=== PATIENT | male | born 1965 ===

== ENCOUNTER 2018-05-23 18:29 | Observation (INO) | payer OTHER ==
[2018-05-23 18:29] VITALS: BMI 30.4
[2018-05-23] MEDS ORDERED: Sodium Chloride 0.9% 1,000 ML IV ONE ×2 (19:22→20:40)
[2018-05-23 19:47] LABS: BASO % 0.3 % (0.0-2.0); HEMOGLOBIN 12.8 g/dL (12.0-18.0); LYMPH # 1.1 K/uL (1.0-4.3); LYMPH % 8.3 % (20.0-40.0); MEAN CELL VOLUME 87.9 fL (80.0-94.0); MEAN CORPUSCULAR HEMOGLOBIN 29.9 pg (27.0-31.0); MEAN PLATELET VOLUME 7.1 fL (7.2-11.7); MONO # 0.6 K/uL (0.0-0.8); MONO % 4.3 % (0.0-10.0); NEUT # 11.7 K/uL (1.8-7.0); NEUT % 87.1 % (50.0-75.0); NRBC % 0.1 % (0.0-2.0); PLATELET COUNT 495 K/uL (130-400); RBC 4.29 Mil/uL (4.40-5.90); RED CELL DISTRIBUTION WIDTH 16.6 % (11.5-14.5); WHITE BLOOD COUNT 13.5 K/uL (4.8-10.8)
[2018-05-23 19:57] LABS: ALB/GLOB RATIO 1.2 (1.0-2.1); ALBUMIN 4.1 g/dL (3.5-5.0); ALT/SGPT 52 U/L (21-72); AST/SGOT 101 U/L (17-59); BLOOD UREA NITROGEN 12 mg/dL (9-20); CALCIUM 8.7 mg/dl (8.6-10.4); GFR NON-AFRICAN AMERICAN > 60; LIPASE 701 U/L (23-300)
--- NOTE | 2018-05-23 20:30 | C.PDOC ---
History Of Present Illness 52 y/o male is brought in by ambulance for public intoxication. Patient was noted to be vomiting coffee grind emesis in the ER. He denies any fever, chills, or other complaints. Time Seen by Provider: 05/23/18 19:10 Chief Complaint (Nursing): Substance Abuse History Per: Patient History/Exam Limitations: no limitations Onset/Duration Of Symptoms: Hrs Current Symptoms Are (Timing): Still Present Past Medical History Reviewed: Historical Data, Nursing Documentation, Vital Signs Vital Signs: Last Vital Signs Temp 98.1 F 05/23/18 19:19 Pulse 127 H 05/23/18 19:19 Resp 22 05/23/18 19:19 BP 140/65 05/23/18 19:19 Pulse Ox 97 05/23/18 19:19 - Medical History PMH: Asthma, Depression, Fibromyalgia, Gastritis (GI Bleed Admitted to 05/02/18), HTN Denies: Alzheimer's Disease, Anemia, Anxiety, Arthritis, Atrial Fibrillation, Bipolar Disorder, Bronchitis, Cardia Arrhythmia, CHF, COPD, Crohn's Disease, Dementia, Diabetes, Diverticulitis, Emphysema, Fractures, Gall Bladder Disease, Hepatitis, HIV, Hypercholesterolemia, Hyperthyroidism, Hypothyroidism, Kidney Stones, Migraine, Mitral Valve Prolapse, Multiple Sclerosis, Osteoporosis, Pancreatitis, Paranoia, Parkinson's Disease, Peripheral Edema, Pneumonia, Post Traumatic Stress Disorder, Pulmonary Embolism, Chronic Kidney Disease, Rheumatoid Arthritis, Schizophrenia, Seizures, Sickle Cell Disease, Sexually Transmitted Disease, Sleep Apnea, TIA Surgical History: Denies: Appendectomy - [facility] (04/05/17) DETOXIFICATION SERVICES FOR SUBSTANCE ABUSE TREATMENT (04/28/18) EXCISION OF DESCENDING COLON, ENDO, DIAGN (04/05/17) INDIV PSYCHOTHERAPY FOR SUBSTANCE ABUSE TREATMENT, SUPPORT (04/28/18) INDIV PSYCHOTHERAPY FOR SUBSTANCE ABUSE, COGNITIV BEHAVIORAL (04/28/18) INDIV PSYCHOTHERAPY FOR SUBSTANCE ABUSE, PSYCHOEDUCATION (04/28/18) INDIVIDUAL PSYCHOTHERAPY, COGNITIVE-BEHAVIORAL (04/28/18) INDIVIDUAL PSYCHOTHERAPY, SUPPORTIVE (04/28/18) RESECTION OF APPENDIX, PERCUTANEOUS ENDOSCOPIC APPROACH (05/12/18) Family History: States: No Known Family Hx - Social History Hx Tobacco Use: Yes (light smoker) Hx Alcohol Use: Yes Hx Substance Use: Yes - Immunization History Hx Tetanus Toxoid Vaccination: Yes Hx Influenza Vaccination: Yes Hx Pneumococcal Vaccination: No Review Of Systems Except As Marked, All Systems Reviewed And Found Negative. Constitutional: Negative for: Fever, Chills Cardiovascular: Negative for: Chest Pain Respiratory: Negative for: Shortness of Breath Gastrointestinal: Positive for: Vomiting. Negative for: Nausea Psych: Positive for: Other (alcohol intoxication) Physical Exam - Physical Exam Appears: Non-toxic, No Acute Distress, Other (Flat affect, bizarre, not answering questions) Skin: Warm, Dry Head: Atraumatic, Normacephalic, No Laceration Eye(s): bilateral: Normal Inspection Oral Mucosa: Moist Neck: Supple Cardiovascular: Rhythm Regular, No Murmur Respiratory: Normal Breath Sounds, No Rales, No Rhonchi, No Wheezing Extremity: Bilateral: Atraumatic, Normal ROM Neurological/Psych: Oriented x3 ED Course And Treatment - Laboratory Results Result Diagrams: 05/23/18 19:38 05/23/18 19:38 Lab Results: Total Bilirubin 0.5 mg/dL (0.2-1.3) 05/23/18 19:38 AST 101 U/L (17-59) H D 05/23/18 19:38 ALT 52 U/L (21-72) 05/23/18 19:38 Alkaline Phosphatase 86 U/L (38-126) 05/23/18 19:38 Total Protein 7.5 g/dL (6.3-8.3) 05/23/18 19:38 Albumin 4.1 g/dL (3.5-5.0) 05/23/18 19:38 Globulin 3.4 gm/dL (2.2-3.9) 05/23/18 19:38 Albumin/Globulin Ratio 1.2 (1.0-2.1) 05/23/18 19:38 Lipase 701 U/L (23-300) H 05/23/18 19:38 Lab Interpretation: Abnormal (lipase 701 H) O2 Sat by Pulse Oximetry: 97 (RA) Pulse Ox Interpretation: Normal - Radiology CXR: Interpreted by Me CXR Interpretation: Yes: No Acute Disease Reevaluation Time: 20:28 Reassessment Condition: Improved - Physician Consult Information Outcome Of Conversation: 2020: d/w Dr. Sandy Lacey, PMD, ok to admit tele obs Medical Decision Making Medical Decision Making: Plan: --EKG --Labs --Chest XR --UA --Ativan 2 mg IVP --Protonix 40 mg IVP --IV fluids 1L probable alcohol w/d, due to pancreatitis pain/discomfort ativan IVF Coffee grind emesis protonix bolus/drip Disposition Doctor Will See Patient In The: Hospital Counseled Patient/Family Regarding: Studies Performed, Diagnosis - Disposition Disposition: HOSPITALIZED Disposition Time: 20:29 Condition: GOOD - Clinical Impression Clinical Impression: Alcohol withdrawal, Pancreatitis, Coffee ground emesis - Scribe Statement The provider has reviewed the documentation as recorded by the Rojelio Jovel Provider Attestation: All medical record entries made by the Rojelio were at my direction and personally dictated by me. I have reviewed the chart and agree that the record accurately reflects my personal performance of the history, physical exam, medical decision making, and the department course for this patient. I have also personally directed, reviewed, and agree with the discharge instructions and disposition.
[2018-05-23 20:41] LABS: URINE BILIRUBIN NEGATIVE (NEGATIVE); URINE BLOOD 1+ (NEGATIVE); URINE CLARITY Hazy (Clear); URINE COLOR Yellow (YELLOW); URINE GLUCOSE (UA) 1+ mg/dL (Normal); URINE LEUKOCYTE ESTERASE NEG Leu/uL (Negative); URINE PROTEIN NEGATIVE (NEGATIVE); URINE UROBILINOGEN NORMAL mg/dL (0.2-1.0)
[2018-05-23 20:44] LABS: LYMPHOCYTE 13 % (20-40); MONOCYTE 2 % (0-10); NEUTROPHIL 85 % (50-75); PLATELET ESTIMATE NORMAL (NORMAL); TOTAL CELLS COUNTED 100
[2018-05-23 21:08] LABS: BARBITURATES, UR NEGATIVE (NEGATIVE); OPIATES, UR NEGATIVE (NEGATIVE); PHENCYCLIDINE, UR NEGATIVE (NEGATIVE)
[2018-05-23 21:10] LABS: BENZODIAZEPINES, UR POSITIVE (NEGATIVE)
[2018-05-23] MEDS: Folic Acid 1 MG, Thiamine 100 MG, Multivitamin (MVI) 10 ML in Dextrose 5% In Water 1,00... IV SCH (23:08)
[2018-05-24 09:38] LABS: AMYLASE 216 U/L (30-110); LIPASE 998 U/L (23-300)
--- NOTE | 2018-05-24 10:54 | US ---
Date of service: 05/24/2018 HISTORY: abdominal pain COMPARISON: Comparison is made to the previous CT of the abdomen and pelvis dated 05/14/2018 TECHNIQUE: Sonographic evaluation of the abdomen. FINDINGS: LIVER: Measures 19.1 cm. Heterogeneous increased echogenicity of the liver parenchyma. No mass. No intrahepatic bile duct dilatation. GALLBLADDER: Unremarkable. No gallstones. COMMON BILE DUCT: Measures 5 mm. No stones. No dilatation. PANCREAS: The pancreas obscured by overlying bowel gas RIGHT KIDNEY: Measures 11.8 x 5.2 x 5.7cm. Normal echogenicity. No calculus, mass, or hydronephrosis. LEFT KIDNEY: Measures 12.5 x 5.8 x 5.7cm. Normal echogenicity. No calculus, mass, or hydronephrosis. SPLEEN: Normal in size and contour. No mass. AORTA: No aneurysmal dilatation. IVC: Unremarkable. OTHER FINDINGS: None. IMPRESSION: Hepatomegaly with findings suggestive of moderate hepatic steatosis. No evidence of cholelithiasis or cholecystitis. No evidence of hydronephrosis.
--- NOTE | 2018-05-24 12:37 | RAD ---
Date of service: 05/23/2018 PROCEDURE: CHEST RADIOGRAPH, 1 VIEW HISTORY: abd pain COMPARISON: Comparison is made with 05/17/2018 FINDINGS: LUNGS: Clear. PLEURA: No pneumothorax or pleural fluid seen. CARDIOVASCULAR: No aortic atherosclerotic calcification present. Normal. OSSEOUS STRUCTURES: No significant abnormalities. VISUALIZED UPPER ABDOMEN: Normal. OTHER FINDINGS: None. IMPRESSION: No active disease.
--- NOTE | 2018-05-24 15:00 | CP.PCM.HP ---
Past Patient History - Infectious Disease Hx of Infectious Diseases: None - Past Medical History & Family History Past Medical History?: Yes - Past Social History Smoking Status: Never Smoked - CARDIAC Hx Atrial Fibrillation: No Hx Cardia Arrhythmia: No Hx Congestive Heart Failure: No Hx Hypercholesterolemia: No Hx Hypertension: Yes Hx Mitral Valve Prolapse: No Hx Peripheral Edema: No - PULMONARY Hx Asthma: Yes Hx Bronchitis: No Hx Chronic Obstructive Pulmonary Disease (COPD): No Hx Emphysema: No Hx Pneumonia: No Hx Pulmonary Embolism: No Hx Sleep Apnea: No - NEUROLOGICAL Hx Alzheimer's Disease: No Hx Dementia: No Hx Migraine: No Hx Multiple Sclerosis: No Hx Parkinson's Disease: No Hx Seizures: No Hx Transient Ischemic Attacks (TIA): No - HEENT Hx HEENT Problems: No Hx Cataracts: No Hx Deafness: No Hx Difficulty Chewing: No Hx Epistaxis: No Hx Glaucoma: No Hx Macular Degeneration: No - RENAL Hx Chronic Kidney Disease: No Hx Kidney Stones: No - ENDOCRINE/METABOLIC Hx Hyperthyroidism: No Hx Hypothyroidism: No - HEMATOLOGICAL/ONCOLOGICAL Hx Anemia: No Hx Human Immunodeficiency Virus (HIV): No Hx Sickle Cell Disease: No - INTEGUMENTARY Hx Dermatological Problems: No Hx Basil Cell: No Hx Bowen: No Hx Cellulitis: No Hx Eczema: No Hx Melanoma: No Hx Psoriasis: No Hx Squamous Cell: No - MUSCULOSKELETAL/RHEUMATOLOGICAL Hx Arthritis: No Hx Fractures: No Hx Osteoporosis: No Hx Rheumatoid Arthritis: No - GASTROINTESTINAL Hx Crohn's Disease: No Hx Diverticulitis: No Hx Gall Bladder Disease: No Hx Gastritis: Yes (GI Bleed Admitted to 05/02/18) Hx Pancreatitis: No - GENITOURINARY/GYNECOLOGICAL Hx Sexually Transmitted Disorders: No - PSYCHIATRIC Hx Anxiety: No Hx Bipolar Disorder: No Hx Depression: Yes Hx Paranoia: No Hx Post Traumatic Stress Disorder: No Hx Schizophrenia: No Hx Substance Use: Yes - SURGICAL HISTORY Hx Appendectomy: No - ANESTHESIA Hx Anesthesia: Yes Hx Anesthesia Reactions: No Hx Malignant Hyperthermia: No Meds Allergies/Adverse Reactions: Allergies Allergy/AdvReac Type Severity Reaction Status Date / Time No Known Allergies Allergy Verified 05/23/18 18:40 Physical Exam - Constitutional Appears: Well - Head Exam Head Exam: ATRAUMATIC, NORMAL INSPECTION, NORMOCEPHALIC - Eye Exam Eye Exam: EOMI, Normal appearance, PERRL Pupil Exam: NORMAL ACCOMODATION, PERRL - ENT Exam ENT Exam: Mucous Membranes Moist, Normal Exam - Neck Exam Neck exam: Positive for: Normal Inspection - Respiratory Exam Respiratory Exam: Decreased Breath Sounds - Cardiovascular Exam Cardiovascular Exam: REGULAR RHYTHM, +S1, +S2 - GI/Abdominal Exam GI & Abdominal Exam: Diminished Bowel Sounds, Soft - Rectal Exam Rectal Exam: Deferred Results - Vital Signs Recent Vital Signs: Last Vital Signs Temp 98.2 F 05/24/18 07:30 Pulse 110 H 05/24/18 07:47 Resp 20 05/24/18 07:30 BP 124/80 05/24/18 07:30 Pulse Ox 95 05/24/18 07:30 - Labs Result Diagrams: 05/23/18 19:38 05/23/18 19:38 Labs: Laboratory Results - last 24 hr 05/23/18 05/23/18 05/23/18 18:39 19:38 19:38 WBC 13.5 H D RBC 4.29 L Hgb 12.8 Hct 37.7 MCV 87.9 MCH 29.9 MCHC 34.0 RDW 16.6 H Plt Count 495 H D MPV 7.1 L Neut % (Auto) 87.1 H Lymph % (Auto) 8.3 L [place] % (Auto) 4.3 Eos % (Auto) 0.0 Baso % (Auto) 0.3 Neut # (Auto) 11.7 H Lymph # (Auto) 1.1 [place] # (Auto) 0.6 Eos # (Auto) 0.0 Baso # (Auto) 0.0 Neutrophils % (Manual) 85 H Lymphocytes % (Manual) 13 L Monocytes % (Manual) 2 Platelet Estimate Normal Sodium 137 Potassium 3.8 Chloride 99 Carbon Dioxide 27 Anion Gap 15 BUN 12 Creatinine 0.8 Est GFR ( Amer) > 60 Est GFR (Non-Af Amer) > 60 POC Glucose (mg/dL) 183 H Random Glucose 180 H D Calcium 8.7 Total Bilirubin 0.5 AST 101 H D ALT 52 Alkaline Phosphatase 86 Total Protein 7.5 Albumin 4.1 Globulin 3.4 Albumin/Globulin Ratio 1.2 Amylase Lipase 701 H Urine Color Urine Clarity Urine pH Ur Specific [place] Urine Protein Urine Glucose (UA) Urine Ketones Urine Blood Urine Nitrate Urine Bilirubin Urine Urobilinogen Ur Leukocyte Esterase Urine WBC (Auto) Urine RBC (Auto) Urine Opiates Screen Urine Methadone Screen Ur Barbiturates Screen Ur Phencyclidine Scrn Ur Amphetamines Screen U Benzodiazepines Scrn U Oth Cocaine Metabols U Cannabinoids Screen Alcohol, Quantitative < 10 05/23/18 05/23/18 05/24/18 20:35 20:35 09:11 WBC RBC Hgb Hct MCV MCH MCHC RDW Plt Count MPV Neut % (Auto) Lymph % (Auto) [place] % (Auto) Eos % (Auto) Baso % (Auto) Neut # (Auto) Lymph # (Auto) [place] # (Auto) Eos # (Auto) Baso # (Auto) Neutrophils % (Manual) Lymphocytes % (Manual) Monocytes % (Manual) Platelet Estimate Sodium Potassium Chloride Carbon Dioxide Anion Gap BUN Creatinine Est GFR ( Amer) Est GFR (Non-Af Amer) POC Glucose (mg/dL) Random Glucose Calcium Total Bilirubin AST ALT Alkaline Phosphatase Total Protein Albumin Globulin Albumin/Globulin Ratio Amylase 216 H D Lipase 998 H Urine Color Yellow Urine Clarity Hazy Urine pH 6.0 Ur Specific [place] 1.017 Urine Protein Negative Urine Glucose (UA) 1+ H Urine Ketones 1+ H Urine Blood 1+ H Urine Nitrate Negative Urine Bilirubin Negative Urine Urobilinogen Normal Ur Leukocyte Esterase Neg Urine WBC (Auto) 1 Urine RBC (Auto) < 1 Urine Opiates Screen Negative Urine Methadone Screen Negative Ur Barbiturates Screen Negative Ur Phencyclidine Scrn Negative Ur Amphetamines Screen Negative U Benzodiazepines Scrn Positive U Oth Cocaine Metabols Negative U Cannabinoids Screen Negative Alcohol, Quantitative
[2018-05-25] MEDS: Folic Acid 1 MG, Thiamine 100 MG, Multivitamin (MVI) 10 ML in Dextrose 5% In Water 1,00... IV SCH ×2 (00:12→22:40)
[2018-05-25 08:58] VITALS: O2SAT 96
[2018-05-25] MEDS: Pantoprazole 40 mg EC Tab PO SCH (09:07)
[2018-05-25] MEDS: Ferrous Fum/Folic Acid/IF/VI 1 Cap PO SCH (09:07)
[2018-05-25] MEDS ORDERED: LANSOPRAZOLE 30 MG PO SCH (10:00)
[2018-05-25] MEDS: Enoxaparin 40 mg Syringe SC SCH (12:32)
[2018-05-25 17:25] VITALS: RESP 20
--- NOTE | 2018-05-25 18:08 | CP.PCM.PN ---
Subjective - Date & Time of Evaluation Date of Evaluation: 05/25/18 Time of Evaluation: 10:35 - Subjective Subjective: patient denies nausea, no vomiting, no diarrhea, no fever, no shortness of breath Objective - Vital Signs/Intake and Output Vital Signs (last 24 hours): Temp Pulse Resp BP Pulse Ox 98.4 F 69 20 172/60 H 96 05/25/18 15:00 05/25/18 15:00 05/25/18 15:00 05/25/18 15:00 05/25/18 15:00 - Medications Medications: Current Medications Chlordiazepoxide (Librium) 25 mg PO Q6 [facility]; Taper Stop: 05/29/18 17:59 Last Admin: 05/25/18 17:29 Dose: 25 mg Enoxaparin Sodium (Lovenox) 40 mg SC DAILY [facility] Last Admin: 05/25/18 12:32 Dose: 40 mg Gabapentin (Neurontin) 300 mg PO TID [facility] Last Admin: 05/25/18 17:29 Dose: 300 mg Folic Acid 1 mg/ Thiamine HCl 100 mg/ Multivitamins/Vitamin C 10 ml/ Dextrose 1,011.2 mls @ 100 mls/hr IV Q24H [facility] Last Admin: 05/25/18 00:12 Dose: 100 mls/hr Iron (Ferocon) 1 cap PO DAILY [facility] Last Admin: 05/25/18 09:07 Dose: 1 cap Lorazepam (Ativan) 2 mg IVP Q6H PRN PRN Reason: Anxiety Last Admin: 05/25/18 06:37 Dose: 2 mg Morphine Sulfate (Morphine) 2 mg IVP Q4 PRN PRN Reason: Pain, moderate (4-7) Last Admin: 05/25/18 03:18 Dose: 2 mg Pantoprazole Sodium (Protonix Ec Tab) 40 mg PO DAILY [facility] Last Admin: 05/25/18 09:07 Dose: 40 mg Trazodone HCl (Desyrel) 100 mg PO HS PRN PRN Reason: Insomnia Last Admin: 05/24/18 22:53 Dose: 100 mg - Labs Labs: 05/23/18 19:38 05/23/18 19:38 - Constitutional Appears: Well - Head Exam Head Exam: ATRAUMATIC, NORMAL INSPECTION, NORMOCEPHALIC - Eye Exam Eye Exam: EOMI, Normal appearance, PERRL Pupil Exam: NORMAL ACCOMODATION, PERRL - ENT Exam ENT Exam: Mucous Membranes Moist, Normal Exam - Neck Exam Neck Exam: Full ROM, Normal Inspection. absent: Lymphadenopathy - Respiratory Exam Respiratory Exam: Decreased Breath Sounds - Cardiovascular Exam Cardiovascular Exam: REGULAR RHYTHM, +S1, +S2 - GI/Abdominal Exam GI & Abdominal Exam: Soft, Diminished Bowel Sounds - Rectal Exam Rectal Exam: Deferred Assessment and Plan - Assessment and Plan (Free Text) Plan: Restoril Furoxone Folic acid Librium Lovenox Morphine Neurontin Protonix ec tablet Librium will be tapering Patient still has a lot of tremors For precaution Seizure precautions Psych consult As ordered
[2018-05-26] MEDS: Ferrous Fum/Folic Acid/IF/VI 1 Cap PO SCH (09:17)
[2018-05-26] MEDS: Enoxaparin 40 mg Syringe SC SCH (09:17)
[2018-05-26] MEDS: Pantoprazole 40 mg EC Tab PO SCH (09:17)
--- NOTE | 2018-05-26 17:18 | CP.PCM.PN ---
Subjective - Date & Time of Evaluation Date of Evaluation: 05/26/18 Time of Evaluation: 17:18 - Subjective Subjective: PATIENT SEEN AND EXAMINED AT THE BEDSIDE Objective - Vital Signs/Intake and Output Vital Signs (last 24 hours): Temp Pulse Resp BP Pulse Ox 98.8 F 76 20 114/70 96 05/25/18 23:10 05/26/18 07:27 05/25/18 23:10 05/25/18 23:10 05/25/18 23:10 Intake and Output: 05/26/18 05/26/18 06:59 18:59 Intake Total 1160 Balance 1160 - Medications Medications: Current Medications Chlordiazepoxide (Librium) 25 mg PO Q6 [facility]; Taper Stop: 05/29/18 17:59 Last Admin: 05/26/18 11:09 Dose: 25 mg Enoxaparin Sodium (Lovenox) 40 mg SC DAILY [facility] Last Admin: 05/26/18 09:17 Dose: 40 mg Gabapentin (Neurontin) 300 mg PO TID [facility] Last Admin: 05/26/18 13:07 Dose: 300 mg Folic Acid 1 mg/ Thiamine HCl 100 mg/ Multivitamins/Vitamin C 10 ml/ Dextrose 1,011.2 mls @ 100 mls/hr IV Q24H [facility] Last Admin: 05/25/18 22:40 Dose: 100 mls/hr Iron (Ferocon) 1 cap PO DAILY [facility] Last Admin: 05/26/18 09:17 Dose: 1 cap Lorazepam (Ativan) 2 mg IVP Q6H PRN PRN Reason: Anxiety Last Admin: 05/26/18 04:42 Dose: 2 mg Morphine Sulfate (Morphine) 2 mg IVP Q4 PRN PRN Reason: Pain, moderate (4-7) Last Admin: 05/26/18 09:23 Dose: 2 mg Pantoprazole Sodium (Protonix Ec Tab) 40 mg PO DAILY [facility] Last Admin: 05/26/18 09:17 Dose: 40 mg Trazodone HCl (Desyrel) 100 mg PO HS PRN PRN Reason: Insomnia Last Admin: 05/25/18 23:04 Dose: 100 mg - Labs Labs: 05/23/18 19:38 05/23/18 19:38 Assessment and Plan - Assessment and Plan (Free Text) Assessment: FOLLOW UP WITH DR Vimal HAYES IN HIS OFFICE -----CALL FOR APPOINTMENT CONTINUE HOME MEDICATION NEW PRESCRIPTION GIVEN FOLIC ACID 1 MG PO DAILY THIAMINE 100 MG PO DAILY PROTONIX 40 MG PO DAILY ACTIVITY TOLERATED CALL DR Vimal HAYES OR GO TO THE EMERGENCY ROOM IF SYMPTOM RETURN OR WORSENING
[2018-05-26 17:44] VITALS: BP 101/61; PULSE 71; TEMP 98.5
--- NOTE | 2018-05-26 18:22 | CP.PCM.DIS ---
Provider - Provider Date of Admission: 05/23/18 20:26 Attending physician: Matheus Hayes MD Primary care physician: keegan garay Time Spent in preparation of Discharge (in minutes): 20 Hospital Course - Lab Results Lab Results: Most Recent Lab Values WBC 13.5 K/uL (4.8-10.8) H D 05/23/18 19:38 RBC 4.29 Mil/uL (4.40-5.90) L 05/23/18 19:38 Hgb 12.8 g/dL (12.0-18.0) 05/23/18 19:38 Hct 37.7 % (35.0-51.0) 05/23/18 19:38 MCV 87.9 fL (80.0-94.0) 05/23/18 19:38 MCH 29.9 pg (27.0-31.0) 05/23/18 19:38 MCHC 34.0 g/dL (33.0-37.0) 05/23/18 19:38 RDW 16.6 % (11.5-14.5) H 05/23/18 19:38 Plt Count 495 K/uL (130-400) H D 05/23/18 19:38 MPV 7.1 fL (7.2-11.7) L 05/23/18 19:38 Neut % (Auto) 87.1 % (50.0-75.0) H 05/23/18 19:38 Lymph % (Auto) 8.3 % (20.0-40.0) L 05/23/18 19:38 [place] % (Auto) 4.3 % (0.0-10.0) 05/23/18 19:38 Eos % (Auto) 0.0 % (0.0-4.0) 05/23/18 19:38 Baso % (Auto) 0.3 % (0.0-2.0) 05/23/18 19:38 Neut # (Auto) 11.7 K/uL (1.8-7.0) H 05/23/18 19:38 Lymph # (Auto) 1.1 K/uL (1.0-4.3) 05/23/18 19:38 [place] # (Auto) 0.6 K/uL (0.0-0.8) 05/23/18 19:38 Eos # (Auto) 0.0 K/uL (0.0-0.7) 05/23/18 19:38 Baso # (Auto) 0.0 K/uL (0.0-0.2) 05/23/18 19:38 Neutrophils % (Manual) 85 % (50-75) H 05/23/18 19:38 Lymphocytes % (Manual) 13 % (20-40) L 05/23/18 19:38 Monocytes % (Manual) 2 % (0-10) 05/23/18 19:38 Platelet Estimate Normal (NORMAL) 05/23/18 19:38 Sodium 137 mmol/L (132-148) 05/23/18 19:38 Potassium 3.8 mmol/L (3.6-5.2) 05/23/18 19:38 Chloride 99 mmol/L (98-107) 05/23/18 19:38 Carbon Dioxide 27 mmol/L (22-30) 05/23/18 19:38 Anion Gap 15 (10-20) 05/23/18 19:38 BUN 12 mg/dL (9-20) 05/23/18 19:38 Creatinine 0.8 mg/dL (0.8-1.5) 05/23/18 19:38 Est GFR ( Amer) > 60 05/23/18 19:38 Est GFR (Non-Af Amer) > 60 05/23/18 19:38 POC Glucose (mg/dL) 103 mg/dL (65-110) 05/24/18 21:36 Random Glucose 180 mg/dL (75-110) H D 05/23/18 19:38 Calcium 8.7 mg/dl (8.6-10.4) 05/23/18 19:38 Total Bilirubin 0.5 mg/dL (0.2-1.3) 05/23/18 19:38 AST 101 U/L (17-59) H D 05/23/18 19:38 ALT 52 U/L (21-72) 05/23/18 19:38 Alkaline Phosphatase 86 U/L (38-126) 05/23/18 19:38 Total Protein 7.5 g/dL (6.3-8.3) 05/23/18 19:38 Albumin 4.1 g/dL (3.5-5.0) 05/23/18 19:38 Globulin 3.4 gm/dL (2.2-3.9) 05/23/18 19:38 Albumin/Globulin Ratio 1.2 (1.0-2.1) 05/23/18 19:38 Amylase 216 U/L (30-110) H D 05/24/18 09:11 Lipase 998 U/L (23-300) H 05/24/18 09:11 Urine Color Yellow (YELLOW) 05/23/18 20:35 Urine Clarity Hazy (Clear) 05/23/18 20:35 Urine pH 6.0 (5.0-8.0) 05/23/18 20:35 Ur Specific [place] 1.017 (1.003-1.030) 05/23/18 20:35 Urine Protein Negative mg/dL (NEGATIVE) 05/23/18 20:35 Urine Glucose (UA) 1+ mg/dL (Normal) H 05/23/18 20:35 Urine Ketones 1+ mg/dL (NEGATIVE) H 05/23/18 20:35 Urine Blood 1+ (NEGATIVE) H 05/23/18 20:35 Urine Nitrate Negative (NEGATIVE) 05/23/18 20:35 Urine Bilirubin Negative (NEGATIVE) 05/23/18 20:35 Urine Urobilinogen Normal mg/dL (0.2-1.0) 05/23/18 20:35 Ur Leukocyte Esterase Neg [place]az/uL (Negative) 05/23/18 20:35 Urine WBC (Auto) 1 /hpf (0-5) 05/23/18 20:35 Urine RBC (Auto) < 1 /hpf (0-3) 05/23/18 20:35 Urine Opiates Screen Negative (NEGATIVE) 05/23/18 20:35 Urine Methadone Screen Negative (NEGATIVE) 05/23/18 20:35 Ur Barbiturates Screen Negative (NEGATIVE) 05/23/18 20:35 Ur Phencyclidine Scrn Negative (NEGATIVE) 05/23/18 20:35 Ur Amphetamines Screen Negative (NEGATIVE) 05/23/18 20:35 U Benzodiazepines Scrn Positive (NEGATIVE) 05/23/18 20:35 U Oth Cocaine Metabols Negative (NEGATIVE) 05/23/18 20:35 U Cannabinoids Screen Negative (NEGATIVE) 05/23/18 20:35 Alcohol, Quantitative < 10 mg/dl (0-10) 05/23/18 19:38 - Hospital Course Hospital Course: Patient admitted with alcohol withdrawal syndrome patient had a tremulous both the hands patient's got better with the Librium patient is okay for the discharge patient's hand does not tremor anymore patient's will be discharged follow-up with my office in 48 hours outpatient scan advised to go for follow-up with the primary doctor prescriptions for folic acid thiamine Protonix MVI given patient advised to stop alcohol patient advised to come back to emergency room if conditions worsens patient was told he is abdominal sonogram report that patient has moderate hepatosplenomegaly with moderate hepatic steatosis and patient advised to see also the GI doctor as an outpatient chest x-ray was no acute disease Discharge Exam - Head Exam Head Exam: ATRAUMATIC, NORMAL INSPECTION, NORMOCEPHALIC - Eye Exam Eye Exam: Conjunctival injection - ENT Exam ENT Exam: Mucous Membranes Dry - Neck Exam Neck exam: Full Rom Discharge Plan - Discharge Medications Prescriptions: Folic Acid 1 mg PO DAILY 30 Days tab Pantoprazole Sodium [Protonix] 40 mg PO DAILY 30 Days tablet. Thiamine [Vitamin B1 Tab] 100 mg PO DAILY 30 Days tab - Follow Up Plan Condition: GOOD Disposition: HOME/ ROUTINE Instructions: Alcohol Use - When Is Drinking a Problem?, Gastrointestinal Bleeding (DC), Alcohol Withdrawal, Alcohol Abuse and Alcoholism (DC), Folic Acid, Pantoprazole, Thiamine, Pancreatitis (DC) Additional Instructions: FOLLOW UP WITH DR Vimal HAYES IN HIS OFFICE -----CALL FOR APPOINTMENT CONTINUE HOME MEDICATION NEW PRESCRIPTION GIVEN FOLIC ACID 1 MG PO DAILY THIAMINE 100 MG PO DAILY PROTONIX 40 MG PO DAILY ACTIVITY TOLERATED CALL DR Vimal HAYES OR GO TO THE EMERGENCY ROOM IF SYMPTOM RETURN OR WORSENING Referrals: Yariel Hayes MD [Staff Provider] -
--- NOTE | 2018-05-28 07:20 | CARD ---
APPROVED REPORT Date of service: 05/23/2018 EKG Measurement Heart [id number] <Conclusion> Sinus tachycardia Otherwise normal ECG
== END 2018-05-26 18:32 | disposition home or self-care (01) ==
LOC: C.ER 18:29 → C.9E 20:26 → C.6T 20:55
PROVIDERS: ADMIT Internal Medicine Nephrology; ATTEND Internal Medicine Nephrology
DX: F10.239 Alcohol dependence with withdrawal, unspecified (principal); I10 Essential (primary) hypertension; J45.909 Unspecified asthma, uncomplicated; K76.0 Fatty (change of) liver, not elsewhere classified; R16.2 Hepatomegaly with splenomegaly, not elsewhere classified; K29.71 Gastritis, unspecified, with bleeding; Z79.899 Other long term (current) drug therapy; Z87.891 Personal history of nicotine dependence; F32.9 Major depressive disorder, single episode, unspecified
CPT/HCPCS: 36415; 71045; 76700; 80053; 80320; 80324; 80345; 80346; 80349; 80353; 80358; 80361; 81001; 82150; 82948; 83690; 83992; 85025; 96361; 96372; 96374; 96375; 96376; 99285; C9113; G0378; J1650; J2060; J2270; J3411; J7030; J7070

== ENCOUNTER 2018-06-21 15:52 | Inpatient (IN) | payer OTHER ==
[2018-06-21 15:53] VITALS: BMI 30.4
--- NOTE | 2018-06-21 16:51 | C.PDOC ---
History Of Present Illness 52 y/o M presents saying that he overdosed. He states he drank alcohol and took amphetamines. He endorses suicidal ideation. He denies any physical complaints at the time of my evaluation but apparently reported chest pain at triage and therefore had EKG performed. He denies any other medication or drug use. Full HPI/ROS unobtainable due to intoxication. Time Seen by Provider: 06/21/18 16:24 Chief Complaint (Nursing): Chest Pain Past Medical History Vital Signs: Last Vital Signs Temp 99.3 F 06/21/18 16:00 Pulse 88 06/21/18 16:23 Resp 18 06/21/18 16:00 BP 108/74 06/21/18 16:23 Pulse Ox 96 06/21/18 16:00 - Medical History PMH: Asthma, Depression, Fibromyalgia, Gastritis (GI Bleed Admitted to 05/02/18), HTN Denies: Alzheimer's Disease, Anemia, Anxiety, Arthritis, Atrial Fibrillation, Bipolar Disorder, Bronchitis, Cardia Arrhythmia, CHF, COPD, Crohn's Disease, Dementia, Diabetes, Diverticulitis, Emphysema, Fractures, Gall Bladder Disease, Hepatitis, HIV, Hypercholesterolemia, Hyperthyroidism, Hypothyroidism, Kidney Stones, Migraine, Mitral Valve Prolapse, Multiple Sclerosis, Osteoporosis, Pancreatitis, Paranoia, Parkinson's Disease, Peripheral Edema, Pneumonia, Post Traumatic Stress Disorder, Pulmonary Embolism, Chronic Kidney Disease, Rheumatoid Arthritis, Schizophrenia, Seizures, Sickle Cell Disease, Sexually Transmitted Disease, Sleep Apnea, TIA Surgical History: Denies: Appendectomy - [facility] (04/05/17) DETOXIFICATION SERVICES FOR SUBSTANCE ABUSE TREATMENT (04/28/18) EXCISION OF DESCENDING COLON, ENDO, DIAGN (04/05/17) INDIV PSYCHOTHERAPY FOR SUBSTANCE ABUSE TREATMENT, SUPPORT (04/28/18) INDIV PSYCHOTHERAPY FOR SUBSTANCE ABUSE, COGNITIV BEHAVIORAL (04/28/18) INDIV PSYCHOTHERAPY FOR SUBSTANCE ABUSE, PSYCHOEDUCATION (04/28/18) INDIVIDUAL PSYCHOTHERAPY, COGNITIVE-BEHAVIORAL (04/28/18) INDIVIDUAL PSYCHOTHERAPY, SUPPORTIVE (04/28/18) RESECTION OF APPENDIX, PERCUTANEOUS ENDOSCOPIC APPROACH (05/12/18) Family History: States: Unknown Family Hx - Social History Hx Tobacco Use: Yes (light smoker) Hx Alcohol Use: Yes Hx Substance Use: Yes - Immunization History Hx Tetanus Toxoid Vaccination: Yes Hx Influenza Vaccination: Yes Hx Pneumococcal Vaccination: No Review Of Systems Review Of Systems: ROS cannot be obtained secondary to pt's inabilty to answer questions. Physical Exam - Physical Exam Additional Physical Exam Comments: gen intoxicated head nc/at eyes blood shot ent mmm neck no midline tenderness chest no tenderness cv reg rate lungs cta b/l abd soft, nt back no cva tenderness extremities no edema skin no rash neuro alert ED Course And Treatment - Laboratory Results Result Diagrams: 06/21/18 16:57 06/21/18 16:57 O2 Sat by Pulse Oximetry: 96 Medical Decision Making Medical Decision Making: ekg nsr 96 bpm, no ST/T wave changes. Vital signs normal, will check drug screen, check for other ingestants. 1:1 sitter for SI. Psych evaluation after sobriety. Alcohol level 361. Crisis aware, will reassess patient when more sober and able to reliably endorse suicidal ideation. Will sign out to ED night team at change of shift. Disposition - Disposition Disposition Time: 18:27 Condition: STABLE Forms: [facility] (Yakut) - Clinical Impression Clinical Impression: Alcohol intoxication
[2018-06-21 17:00] LABS: BASO % 0.8 % (0.0-2.0); HEMOGLOBIN 14.7 g/dL (12.0-18.0); LYMPH # 2.3 K/uL (1.0-4.3); MEAN CORPUSCULAR HEMOGLOBIN 29.7 pg (27.0-31.0); MEAN CORPUSCULAR HGB CONC 33.4 g/dL (33.0-37.0); MEAN PLATELET VOLUME 7.9 fL (7.2-11.7); MONO # 0.3 K/uL (0.0-0.8); MONO % 4.9 % (0.0-10.0); NEUT # 3.5 K/uL (1.8-7.0); NEUT % 56.3 % (50.0-75.0); RBC 4.94 Mil/uL (4.40-5.90); RED CELL DISTRIBUTION WIDTH 15.9 % (11.5-14.5); WHITE BLOOD COUNT 6.2 K/uL (4.8-10.8)
[2018-06-21 17:11] LABS: ACETAMINOPHEN < 10.0 ug/mL (10.0-30.0); SALICYLATE < 1.0 mg/dL 1
[2018-06-21 17:18] LABS: ALB/GLOB RATIO 1.3 (1.0-2.1); ALBUMIN 4.4 g/dL (3.5-5.0); ALT/SGPT 94 U/L (21-72); AST/SGOT 105 U/L (17-59); BLOOD UREA NITROGEN 10 mg/dL (9-20); CALCIUM 8.4 mg/dl (8.6-10.4); GFR NON-AFRICAN AMERICAN > 60
[2018-06-21 18:32] LABS: URINE BILIRUBIN NEGATIVE (NEGATIVE); URINE CLARITY Clear (Clear); URINE COLOR Yellow (YELLOW); URINE GLUCOSE (UA) NORMAL (Normal); URINE LEUKOCYTE ESTERASE NEG Leu/uL (Negative); URINE PROTEIN NEGATIVE (NEGATIVE); URINE UROBILINOGEN NORMAL mg/dL (0.2-1.0)
[2018-06-21 18:34] LABS: URINE BLOOD TRACE (NEGATIVE)
[2018-06-21 18:45] LABS: BARBITURATES, UR NEGATIVE (NEGATIVE); BENZODIAZEPINES, UR NEGATIVE (NEGATIVE); OPIATES, UR NEGATIVE (NEGATIVE); PHENCYCLIDINE, UR NEGATIVE (NEGATIVE)
[2018-06-21] MEDS ORDERED: Pantoprazole 40 mg EC Tab PO STA (21:05)
[2018-06-21] MEDS ORDERED: Pantoprazole 40 mg EC Tab PO ONE (21:27)
--- NOTE | 2018-06-21 22:20 | PCM.BM ---
<Ankur Estrada - Last Filed: 06/21/18 22:18> Treatment Plan Problems - Problems identified on initial assessmt Anxiety related to substance use Date Initiated: 06/21/18 Time Initiated: 22:19 Assessment reference: NA Status: Active Defensive Coping Date Initiated: 06/21/18 Time Initiated: 22:19 Assessment reference: NA Status: Active Denial Date Initiated: 06/21/18 Time Initiated: 22:19 Assessment reference: NA Status: Active Treatment assets and liabiliti Patient Assests: adapts well, cooperative, motivated, ADL independent, negotiates basic needs, cognitively intact Patient Liabilities: substance abuse - Milieu Protocol Maintain good personal hygiene: daily Encourage regular showers, daily Remind patient to perform daily oral care, daily Assist patient to perform ADL's Conduct patient checks and document Observation sheet: Q15 minutes Maintain personal safety: every shift Educate patient to report safety concerns to staff, every shift Monitor environment for contraband/sharps Medication safety: Monitor for expected outcome, potential side effects: every shift, Assess barriers to learning: every shift, Assess readiness for medication education: every shift <Prachi Ramirez - Last Filed: 06/23/18 13:27> Family Contact Family involvement: Famliy/SO not involved - Goals for Treatment Patient goals for treatment: Complete detox and apply for long-term residential treatment program. Discharge/Continuing Care - Education Needs Education Needs: Patient Medication, Patient Diagnosis/Disease Process, Patient Coping Skills, Patient Anger Management skills, Patient Placement options, Patient Community resources - Discharge Discharge Criteria: No longer exhibiting s/s of withdrawal, Reduction of target symptoms Discharge to:: Substance Abuse Rehab - Treatment Team Participation Patient/Family/SO Statement: 06/23/18 13:28 "[facility] go [facility] from here..." Discussed with Family/SO: No Was Patient/Family/SO present at Treatment Team Meeting: Yes <Jorge Bishop - Last Filed: 06/25/18 13:55> - Diagnosis (1) Alcohol withdrawal Status: Acute Interventions: 13:55 * Assess 7x/week regarding severity of withdrawal * Educate regarding risks, benefits, side effects and alternatives of medications * Use Motivational Interviewing for abstinence * Use CBT for relapse prevention * Medication management for withdrawal symptoms * Encourage medication assisted treatment *
[2018-06-21] MEDS ORDERED: Albuterol HFA 90 mcg/actuation (8 g) INH PRN (23:39)
[2018-06-22] MEDS: Aluminum Hydroxide/Magnesium Hydroxide Susp (30 mL) PO PRN ×2 (00:44→08:12)
[2018-06-22] MEDS: Multiple Vitamins Tab PO SCH (09:20)
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
[2018-06-22] MEDS: Pantoprazole 40 mg EC Tab PO SCH (11:29)
--- NOTE | 2018-06-22 12:18 | CARD ---
APPROVED REPORT Date of service: 06/21/2018 EKG Measurement Heart [id number] <Conclusion> Normal sinus rhythm Normal ECG
[2018-06-23] MEDS: Multiple Vitamins Tab PO SCH (09:50)
[2018-06-23] MEDS: Pantoprazole 40 mg EC Tab PO SCH (09:50)
[2018-06-23] MEDS: Aluminum Hydroxide/Magnesium Hydroxide Susp (30 mL) PO PRN ×2 (11:41→21:07)
[2018-06-24] MEDS: Pantoprazole 40 mg EC Tab PO SCH (09:20)
[2018-06-24] MEDS: Multiple Vitamins Tab PO SCH (09:21)
--- NOTE | 2018-06-24 14:22 | PCM.PYCHPN ---
Psychiatric Progress Note - Psychiatric Progress Note Patient seen today, length of contact: 16 min Patient Chief Complaint: "Alcohol" Problems Identified/Issues Discussed: The pt is seen, chart reviewed, case discussed with staff. The pt is compliant with medications and reports no side-effects. Symptoms are improving but needs more time to stabilize. Front Desk Associate spoke to medicine (Dr. Nicci Lacey) and ordered reglan. gabapentin, thorazine and protonix was already ordered and there was an CXR from 05/23 (normal) Pt attends groups and activities. Support given, psycho-education provided. After care discussed. [facility] Med[facility] Change: Yes (detox changes daily) Medical Record Reviewed: Yes Mental Status Examination - Cognitive Function Orientation: Person, Place, Situation, Time Memory: Intact Attention: WNL Concentration: Poor Association: WNL Fund of Knowledge: WNL - Mood Mood: Depressed, Anxious - Affect Affect: Constricted - Speech Speech: Appropriate - Formal Thought Process Formal Thought Process: No Impairment - Suicidal Ideation Suicidal Ideation: No - Homicidal Ideation Homicidal Ideation: No Goal/Treatment Plan - Goal/Treatment Plan Need for Continued Stay: Discharge may exacerbated symptoms Progress Toward Problem(s) and Goals/Treatment Plan: Taper with lorazepam Gabapentin for augmentation Remeron for depression As needed medications All risks, benefits and alternatives of the meds discussed, and the pt agreed and understood. Attend groups and activities Supportive therapy and psychoeducation NC for abstinence CBT for relapse prevention Encourage MAT Refer to rehab or IOP, and self-help groups Teach healthy lifestyle methods, i.e. diet, exercise, meditation Smoking cessation with NC Nicotine patch if needed
--- NOTE | 2018-06-24 14:22 | PCM.PYCHPN ---
Psychiatric Progress Note - Psychiatric Progress Note Patient seen today, length of contact: 15 min Patient Chief Complaint: "hiccuping a lot" Problems Identified/Issues Discussed: The pt is seen, chart reviewed, case discussed with staff. Support and psychoeducation given, CBT and [place] used briefly Pt is improving slowly and needs more time, still has ongoing symptoms. No SEs from medications, risks discussed. After care discussed Medication Change: Yes (detox changes daily, hicccup meds ordered) Medical Record Reviewed: Yes Mental Status Examination - Cognitive Function Orientation: Person, Place, Situation, Time Memory: Intact Attention: Poor Concentration: Poor Association: WNL Fund of Knowledge: WNL - Mood Mood: Depressed, Anxious - Affect Affect: Constricted - Speech Speech: Appropriate - Formal Thought Process Formal Thought Process: No Impairment - Suicidal Ideation Suicidal Ideation: No - Homicidal Ideation Homicidal Ideation: No Goal/Treatment Plan - Goal/Treatment Plan Need for Continued Stay: Discharge may exacerbated symptoms, Severe functional impairment Progress Toward Problem(s) and Goals/Treatment Plan: Taper with lorazepam Gabapentin for augmentation Remeron for depression As needed medications All risks, benefits and alternatives of the meds discussed, and the pt agreed and understood. Attend groups and activities Supportive therapy and psychoeducation [place] for abstinence CBT for relapse prevention Encourage MAT Refer to rehab or IOP, and self-help groups Teach healthy lifestyle methods, i.e. diet, exercise, meditation Smoking cessation with [place] Nicotine patch if needed
[2018-06-25 06:18] VITALS: O2SAT 98
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
[2018-06-25] MEDS: Multiple Vitamins Tab PO SCH (09:33)
[2018-06-25] MEDS: Pantoprazole 40 mg EC Tab PO SCH (09:33)
[2018-06-25] MEDS ORDERED: Pneumococcal 23-Valent Vaccine IM ONE (10:00)
[2018-06-25 10:06] VITALS: BP 122/75; PULSE 111; RESP 18; TEMP 98
== END 2018-06-25 13:30 | DRG 751 ==
LOC: C.ER 15:52 → C.7D 22:05
PROVIDERS: ADMIT Psychiatry & Neurology Psychiatry; ATTEND Psychiatry & Neurology Psychiatry
PROC: HZ2ZZZZ Detoxification Services for Substance Abuse Treatment (ICD-10-PCS; principal; 2018-06-21)
PROC: HZ52ZZZ Individual Psychotherapy for Substance Abuse Treatment, Cognitive-Behavioral (ICD-10-PCS; 2018-06-21)
PROC: HZ59ZZZ Individual Psychotherapy for Substance Abuse Treatment, Supportive (ICD-10-PCS; 2018-06-21)
PROC: HZ56ZZZ Individual Psychotherapy for Substance Abuse Treatment, Psychoeducation (ICD-10-PCS; 2018-06-21)
PROC: HZ42ZZZ Group Counseling for Substance Abuse Treatment, Cognitive-Behavioral (ICD-10-PCS; 2018-06-21)
PROC: HZ46ZZZ Group Counseling for Substance Abuse Treatment, Psychoeducation (ICD-10-PCS; 2018-06-21)
PROC: GZHZZZZ Group Psychotherapy (ICD-10-PCS; 2018-06-21)
PROC: GZ58ZZZ Individual Psychotherapy, Cognitive-Behavioral (ICD-10-PCS; 2018-06-21)
PROC: GZ56ZZZ Individual Psychotherapy, Supportive (ICD-10-PCS; 2018-06-21)
DX: F10.230 Alcohol dependence with withdrawal, uncomplicated (principal); F10.220 Alcohol dependence with intoxication, uncomplicated; Y90.8 Blood alcohol level of 240 mg/100 ml or more; F12.90 Cannabis use, unspecified, uncomplicated; F32.9 Major depressive disorder, single episode, unspecified; I10 Essential (primary) hypertension; J45.909 Unspecified asthma, uncomplicated; K21.9 Gastro-esophageal reflux disease without esophagitis; M79.7 Fibromyalgia; F17.210 Nicotine dependence, cigarettes, uncomplicated; Z59.0 Homelessness; Z96.651 Presence of right artificial knee joint; F41.9 Anxiety disorder, unspecified; R06.6 Hiccough